=== PATIENT | male | born 1985 | race Caucasian/White ===

== ENCOUNTER 2023-01-30 18:32 | Emergency (ER) | payer OTHER ==
[~2023-01-30] VITALS: Ht 182.9 cm; Wt 90.7 kg
[2023-01-30 19:02] VITALS: BP 139/111
[2023-01-30] MEDS ORDERED: CEPH500 PO (20:41)
== END 2023-01-30 21:11 | disposition home or self-care (01) ==
LOC: ER 18:32
DX: S61.411A Laceration without foreign body of right hand, initial encounter (principal); W45.8XXA Other foreign body or object entering through skin, initial encounter; Z23 Encounter for immunization
CPT/HCPCS: 12002; 90471; 90714; 90715; 99282-25